=== PATIENT | female | born 2000 | race American Indian/Alaskan Native ===

== ENCOUNTER 2024-06-25 15:21 | Emergency (ER) | payer OTHER, SELFPAY ==
--- NOTE | ~2024-06-25 | US_ITS ---
EXAMINATION: US PELVIS CLINICAL INFORMATION: Suprapubic pain. COMPARISON: None available. LMP: 06/16/2024 TECHNIQUE: Ultrasound of the pelvis is performed using both transabdominal and transvaginal transducers along with Doppler. Transvaginal imaging is performed due to inadequate visualization transabdominally. FINDINGS: Uterus: The uterus is anteverted and anteflexed and measures 8.7 x 4.2 x 4.9 cm. The double wall endometrial thickness is 12 mm. Small volume of fluid in the cervix. The uterus is smooth in contour and has normal myometrial echogenicity. No visible fibroid. Adnexa: Both ovaries are visualized. There is normal color flow to the adnexa. There is no ovarian torsion. There is no pelvic ascites or fluid collection. Right ovary measures 2.5 x 1.1 x 2.2 cm. 3.2 mL., Follicle/cyst measuring 1.7 cm. There is an adjacent 1.4 cm cyst/follicle. Left ovary measures 3.9 x 1.8 x 3.1 cm. And 0.4 mL. Dominant follicle measuring 1.9 cm. US/US pelvic and transvaginal IMPRESSION: Normal ultrasound of pelvis. Electronically signed by: Bran Hameed MD 06/25/2024 04:56 PM EDT
[2024-06-25 15:45] VITALS: BP 118/80; PULSE 84; RESP 16; TEMP 37.1; O2SAT 99; BMI 29.3
--- NOTE | 2024-06-25 15:48 | ED_ITS ---
HPI - Abdominal Pain General Chief Complaint: Urogenital-Female Stated Complaint: pelvic and groin pain Time Seen by Provider: 06/25/24 20:18 Source: patient Limitations: no limitations History of Present Illness ED Provider: Veena Gutiérrez PA-C HPI narrative: 23-year-old otherwise healthy female presents with right lower pelvic pain x1 week. Pain radiates to right groin, is worse with movement. Denies dysuria, hematuria, history of kidney stones, risk for STD, new vaginal discharge, risk of or vaginal bleeding. No nausea, vomiting, diarrhea or fever. Patient denies that she could have strained her abdominal wall. Related Data Previous Rx's ?Medication ?Instructions ?Recorded doxycycline hyclate 100 mg capsule 100 mg PO BID #28 caps 06/25/24 metronidazole 500 mg tablet 500 mg PO BID #28 tabs 06/25/24 Allergies Allergy/AdvReac Type Severity Reaction Status Date / Time strawberry Allergy Anaphylaxis Verified 06/25/24 22:27 Review of Systems Review of Systems Yes all other systems are reviewed and are negative Constitutional: Denies fatigue and Denies fever(s) Cardiovascular: Denies chest pain Gastrointestinal: Reports abdominal pain Genitourinary: Denies abnormal vaginal bleeding, Denies dysuria and Denies vaginal discharge Endocrine: Denies fatigue PMFSH Past Medical History Attestation statement: The following information was validated with the patient. Social History Social History Advance Directives: No Advance Directives Information Provided: No Do you have a plan to hurt others: No Plan Physical Exam ED Vital Signs: Vital Signs - 24 hr 06/25/24 15:45 06/25/24 20:47 Temperature 98.8 F 98.2 F Pulse Rate 84 78 Respiratory Rate 16 16 Blood Pressure 118/80 115/63 Pulse Oximetry 99 99 Oxygen Delivery Method Room Air Room Air BMI result Body Mass Index 29.3 Const Other: Alert well in appearance Orientation/consciousness: patient oriented x3 Resp Effort & Inspection: normal respiratory effort GI Other: Abdomen is soft, nondistended, mild tenderness over right pelvic region without guarding Other: Normal external genitalia, no lesions, no bleeding and vaginal canal, cervix is pink, it is not friable, trace amounts of watery translucent discharge noted, no CMT Skin Other: Warm dry no rash Neuro General: patient oriented x3, no focal motor deficits and CN's II-XI intact bilaterally Psych Other: Cooperative, tearful at times Course Course Course Narrative: This is a Rapid Medical Exam performed in triage by Ebony Mcgarry PA-C. Full HPI, ROS and PE to be performed by primary ED provider. 23 yo F w/no sig pmhx presenting to the ED c/o subjective fever, right lower/suprapubic abdominal pain x1 week s/p ending menstruation. denies V/D/C, vaginal bleeding or d/c, dysuria, hematuria PE: abdomen soft +R suprapubic tenderness Plan: labs, UA, STI testing, Pelvic US Medical Decision Making Medical Decision Making [facility] Narrative: 23-year-old otherwise healthy female presents with right lower pelvic pain x1 week. Pain radiates to right groin, is worse with movement. Denies dysuria, hematuria, history of kidney stones, risk for STD, new vaginal discharge, risk of or vaginal bleeding. No nausea, vomiting, diarrhea or fever. Patient denies that she could have strained her abdominal wall. No relevant chronic issues History: Per patient I have considered the following differential diagnoses: Appendicitis, renal colic, UTI, torsion, ectopic, TOA, PID, cervicitis Plan: Patient is assessment began in [facility]. Screening labs including urine GC chlamydia, and transvaginal ultrasound were obtained. The patient does not , the ultrasound was unremarkable. However she tested positive for chlamydia. She is extremely upset as she is , and has not had any additional partners on her own. We will perform a pelvic exam, screen for trich, and treat for PID. Patient is in agreement with the plan. I have independently reviewed the following tests: Labs: No leukocytosis, not anemic, urine not infected, positive For chlamydia, wet prep pending at the time of discharge Transvaginal ultrasound:COMPARISON: None available. LMP: 06/16/2024 TECHNIQUE: Ultrasound of the pelvis is performed using both transabdominal and transvaginal transducers along with Doppler. Transvaginal imaging is performed due to inadequate visualization transabdominally. FINDINGS: Uterus: The uterus is anteverted and anteflexed and measures 8.7 x 4.2 x 4.9 cm. The double wall endometrial thickness is 12 mm. Small volume of fluid in the cervix. The uterus is smooth in contour and has normal myometrial echogenicity. No visible fibroid. Adnexa: Both ovaries are visualized. There is normal color flow to the adnexa. There is no ovarian torsion. There is no pelvic ascites or fluid collection. Right ovary measures 2.5 x 1.1 x 2.2 cm. 3.2 mL., Follicle/cyst measuring 1.7 cm. There is an adjacent 1.4 cm cyst/follicle. Left ovary measures 3.9 x 1.8 x 3.1 cm. And 0.4 mL. Dominant follicle measuring 1.9 cm. US/US pelvic and transvaginal IMPRESSION: Normal ultrasound of pelvis. Electronically signed by: Bran Hameed MD 06/25/2024 04:56 PM EDT RP Dictated By: Bran Hameed MD Discussed with the patient that the additional vaginal swab would not be completed at the time of her discharge, that she can access the patient portal, someone from registration was showing her how to do so. Lab Data 06/25/24 16:02 06/25/24 16:02 Labs: Lab Results 06/25/24 06/25/24 06/25/24 Range/Units 16:02 16:28 16:29 WBC 8.0 (4.8-10.8) X10*3/uL RBC 4.79 (4.20-5.50) X10*6/uL Hgb 9.2 L (12.0-16.0) g/dl Hct 32.0 L (37.0-47.0) % MCV 66.8 L (80.0-98.0) fL MCH 19.2 L (27.0-33.0) pg MCHC 28.8 L (31.0-35.0) g/dl RDW 18.8 H (11.0-16.0) % Plt Count 360 (160-400) X10*3/uL MPV 8.6 L (9.4-12.3) fL Immature Gran % (Auto) 0.2 (0.0-0.4) % Neut % (Auto) 60.4 (45-73) % Lymph % (Auto) 29.1 (20-40) % [place] % (Auto) 7.7 (2-11) % Eos % (Auto) 2.0 (0-4) % Baso % (Auto) 0.6 (0-2) % Lymph # (Auto) 2.3 (1.2-4.9) X10*3/uL [place] # (Auto) 0.6 (0.1-1.2) X10*3/uL Eos # (Auto) 0.2 (0.0-0.4) X10*3/uL Baso # (Auto) 0.1 (0.0-0.2) X10*3/uL Abs Immat Gran (auto) 0.02 (0.00-0.03) X10*3/uL Absolute Neuts (auto) 4.8 (2.0-8.3) x10*3/uL Absolute Nucleated RBC 0.000 (0.0-0.012) X10*3/uL Nucleated RBC % (auto) 0.0 (0.0-0.2) /100WBC Sodium 139 (135-145) mmol/L Potassium 3.9 (3.3-5.1) mmol/L Chloride 107 (96-108) mmol/L Carbon Dioxide 26 (22-29) mmol/L Anion Gap 10 L (12-20) BUN 7 L (9-16) mg/dL Creatinine 0.66 (0.5-1.4) mg/dL Estim Creat Clear Calc 121.5 Estimated GFR > 60 Random Glucose 93 (60-115) mg/dL Calcium 9.6 (8.4-10.2) mg/dL Total Bilirubin 0.4 (0.0-1.0) mg/dL Direct Bilirubin 0.1 (0.0-0.5) mg/dL AST 21 (5-31) U/L ALT 19 (0-31) U/L Alkaline Phosphatase 101 (39-117) U/L Total Protein 8.1 H (6.5-8.0) g/dL Albumin 4.4 (3.5-5.0) g/dL Lipase 44 (8-78) U/L Urine Color Yellow Urine Appearance Clear Urine pH 8.0 (5.0-9.0) Ur Specific Warren 1.015 (1.005-1.025) Urine Protein Negative (Neg-Trace) mg/dL Urine Glucose (UA) Negative (Negative) mg/dL Urine Ketones Negative (Negative) mg/dL Urine Blood Negative (Negative) Urine Nitrite Negative (Negative) Ur Leukocyte Esterase Negative (Negative) Urine Test NEGATIVE (NEGATIVE) Chlam trachomat DNA PCR DETECTED A (Not Detect.) N.gonorrhoeae DNA (PCR) NOT DETECTED (Not Detect.) T. vaginalis Amp RNA 06/25/24 Range/Units 21:52 WBC (4.8-10.8) X10*3/uL RBC (4.20-5.50) X10*6/uL Hgb (12.0-16.0) g/dl Hct (37.0-47.0) % MCV (80.0-98.0) fL MCH (27.0-33.0) pg MCHC (31.0-35.0) g/dl RDW (11.0-16.0) % Plt Count (160-400) X10*3/uL MPV (9.4-12.3) fL Immature Gran % (Auto) (0.0-0.4) % Neut % (Auto) (45-73) % Lymph % (Auto) (20-40) % [place] % (Auto) (2-11) % Eos % (Auto) (0-4) % Baso % (Auto) (0-2) % Lymph # (Auto) (1.2-4.9) X10*3/uL [place] # (Auto) (0.1-1.2) X10*3/uL Eos # (Auto) (0.0-0.4) X10*3/uL Baso # (Auto) (0.0-0.2) X10*3/uL Abs Immat Gran (auto) (0.00-0.03) X10*3/uL Absolute Neuts (auto) (2.0-8.3) x10*3/uL Absolute Nucleated RBC (0.0-0.012) X10*3/uL Nucleated RBC % (auto) (0.0-0.2) /100WBC Sodium (135-145) mmol/L Potassium (3.3-5.1) mmol/L Chloride (96-108) mmol/L Carbon Dioxide (22-29) mmol/L Anion Gap (12-20) BUN (9-16) mg/dL Creatinine (0.5-1.4) mg/dL Estim Creat Clear Calc Estimated GFR Random Glucose (60-115) mg/dL Calcium (8.4-10.2) mg/dL Total Bilirubin (0.0-1.0) mg/dL Direct Bilirubin (0.0-0.5) mg/dL AST (5-31) U/L ALT (0-31) U/L Alkaline Phosphatase (39-117) U/L Total Protein (6.5-8.0) g/dL Albumin (3.5-5.0) g/dL Lipase (8-78) U/L Urine Color Urine Appearance Urine pH (5.0-9.0) Ur Specific Warren (1.005-1.025) Urine Protein (Neg-Trace) mg/dL Urine Glucose (UA) (Negative) mg/dL Urine Ketones (Negative) mg/dL Urine Blood (Negative) Urine Nitrite (Negative) Ur Leukocyte Esterase (Negative) Urine Test (NEGATIVE) Chlam trachomat DNA PCR (Not Detect.) N.gonorrhoeae DNA (PCR) (Not Detect.) T. vaginalis Amp RNA Cancelled Discharge Plan Discharge Clinical Impression: Acute pelvic inflammatory disease (PID), Chlamydia Patient Disposition: Home, Self-Care Additional Instructions: You were found to test positive for chlamydia. This is a sexually transmitted disease, it can cause symptoms of pelvic inflammatory disease. We are treating you for this infection. Take the doxycycline as directed. There was 1 vaginal swab that we will not result overnight, you can access the patient portal for results. If you test positive for trichomatis, you should take the prescribed Flagyl as directed as well. If you are negative for a coinfection, discard the prescription. Prescriptions: New doxycycline hyclate 100 mg capsule 100 mg PO BID Qty: 28 0RF metronidazole 500 mg tablet 500 mg PO BID Qty: 28 0RF Print Language: Welsh
[2024-06-25 16:07] LABS: MANUAL DIFF FLAG NO
[2024-06-25 16:09] LABS: Basophils Absolute Auto 0.1 X10*3/uL (0.0-0.2); Basophils Percent Auto 0.6 % (0-2); Eosinophils Absolute Auto 0.2 X10*3/uL (0.0-0.4); Hemoglobin 9.2 g/dl (12.0-16.0); Imm Gran Abs Auto 0.02 X10*3/uL (0.00-0.03); Imm Gran Pct Auto 0.2 % (0.0-0.4); Lymphocytes Absolute Auto 2.3 X10*3/uL (1.2-4.9); Lymphocytes Percent Auto 29.1 % (20-40); Mean Corpuscular HGB Conc 28.8 g/dl (31.0-35.0); Mean Corpuscular Hemoglobin 19.2 pg (27.0-33.0); Mean Corpuscular Volume 66.8 fL (80.0-98.0); Mean Platelet Volume 8.6 fL (9.4-12.3); Monocytes Absolute Auto 0.6 X10*3/uL (0.1-1.2); Monocytes Percent Auto 7.7 % (2-11); Neutrophils Absolute Auto 4.8 x10*3/uL (2.0-8.3); Neutrophils Percent Auto 60.4 % (45-73); Platelet Count 360 X10*3/uL (160-400); Red Blood Count 4.79 X10*6/uL (4.20-5.50); Red Cell Distribution Width 18.8 % (11.0-16.0)
[2024-06-25 16:35] LABS: Alanine Aminotransferase 19 U/L (0-31); Albumin Level 4.4 g/dL (3.5-5.0); Alkaline Phosphatase 101 U/L (39-117); Anion Gap 10 (12-20); Aspartate Amino Transferase 21 U/L (5-31); Bilirubin Direct 0.1 mg/dL (0.0-0.5); Bilirubin Total 0.4 mg/dL (0.0-1.0); Blood Urea Nitrogen 7 mg/dL (9-16); Calcium 9.6 mg/dL (8.4-10.2); Carbon Dioxide 26 mmol/L (22-29); Chloride 107 mmol/L (96-108); Creatinine Clr Calc Pharmacy 121.5; Estimated Glomerular Filt Rate > 60; Glucose Random 93 mg/dL (60-115); Lipase 44 U/L (8-78); Potassium 3.9 mmol/L (3.3-5.1); Sodium 139 mmol/L (135-145); Total Protein 8.1 g/dL (6.5-8.0)
[2024-06-25 16:41] LABS: Appearance Urine Clear; Color Urine Yellow; Glucose Urine UA Negative (Negative); Leukocyte Esterase Urine Negative (Negative); Nitrite Urine Negative (Negative); Specific Gravity - Urine 1.015 (1.005-1.025); Urine Blood Negative (Negative); Urine Ketones Negative (Negative); Urine Protein Negative (Neg-Trace)
[2024-06-25 16:43] LABS: UPreg QC Valid YES; Urine Pregnancy NEGATIVE (NEGATIVE)
[2024-06-25 18:47] LABS: CT PCR DETECTED (Not Detect.); NG PCR NOT DETECTED (Not Detect.)
[2024-06-25 20:47] VITALS: BP 115/63; PULSE 78; RESP 16; TEMP 36.8; O2SAT 99
[2024-06-25] MEDS: Doxycycline Monohydrate 100 MG CAPSULE PO (22:28)
[2024-06-25] MEDS: cefTRIAXone sodium 250 MG VIAL IM (22:28)
[2024-06-25 23:44] VITALS: BP 121/67; PULSE 77; RESP 18; TEMP 36.8; O2SAT 100
[2024-06-26 10:50] LABS: Bacterial Vaginosis PCR POSITIVE (Negative); Candida Group PCR NOT DETECTED (Not Detect); Candida glab krusei PCR NOT DETECTED (Not Detect); Trichomonas vaginalis PCR NOT DETECTED (Not Detect)
== END 2024-06-25 23:12 | disposition home or self-care (01) ==
PROVIDERS: Physician Assistant; Physician Assistant Medical; Emergency Provider Emergency Medicine
DX: A56.11 Chlamydial female pelvic inflammatory disease (principal); R10.2 Pelvic and perineal pain
CPT/HCPCS: 0352U; 36415; 76830; 76856; 80048; 80076; 81003; 81025; 83690; 85025; 87491; 87591; 87661; 96372; 99284; J0696

== ENCOUNTER 2024-11-12 07:58 | Outpatient (REF) | payer OTHER, SELFPAY | END 2024-11-12 07:59 | disposition home or self-care (01) | LOC: HO.LAB 07:58 | PROVIDERS: Visit Provider Physician Assistant | DX: J06.9 Acute upper respiratory infection, unspecified (principal) | CPT/HCPCS: 99202 ==

== ENCOUNTER 2024-11-12 07:58 | Outpatient (AMB) | payer OTHER, SELFPAY ==
[2024-11-12 08:49] VITALS: BP 122/70; PULSE 109; RESP 20; TEMP 37.9; O2SAT 96; BMI 29.3
--- NOTE | 2024-11-12 08:49 | AM.OFFWIN_ITS ---
Intake Vital Signs 11/12/24 08:49 Height 5 ft 2 in Weight 160 lb BMI 29.3 BP 122/70 Blood Pressure Location Lt brachial Position Sitting Respiration 20 Pulse 109 H Pulse Source Pulse Oximeter Temp 100.3 F Temp Source Oral Pulse Oximetry (%) 96 Oxygen Delivery Method Room Air Intake Visit Reasons: EP fever, cough, sore throat chest discomfort Intake Note: Pt is here today for a walk in visit. Pt c/o fever cough chest congestion since Sunday. Allergies strawberry Allergy (Verified 11/12/24 08:52) Anaphylaxis Do you need a note to return to daycare/school/sports/work: Yes HPI HPI Comments History of Present Illness Details History - The patient is a 24-year-old female pr esenting with chest pain and fever. - Chest pain is described as a heaviness on the top of the lungs, worsening with deep inspiration but without radiation to back, neck, arms or shoulders. - She has a past medical history of asth ma and is currently without prescribed inhalers. - The febrile illness commenced two days ago, accompanied by persistent fever unresponsive to cultural traditional treatments of teas. Is able to take tylenol. - At-home COVID testing returned negativ e results. - She self-manages respiratory symptoms with teas but has not attempted pharmacological fever management. Physical Exam General: Cooperative, healthy appearing, comfortable and no acute distress Orientation/consciousness: Patient oriented x3 Limitations: No limitations Head: Normal to inspection Ears: Hearing grossly normal bilaterally, external ears normal and TM's normal bilaterally Nose: Normal external nose present, Normal nares present and No nasal discharge present Face and sinus: Normal facial exam and Yes sinuses nontender Mouth: Normal oral and palatal mucosa present and moist mucous membranes Throat: Yes tonsils normal, Yes uvula midline. Posterior oropharynx erythema Eyes: Appearance normal, both eyes and all related structures Neck: Normal visual inspection Respiratory: Clear to auscultation bilaterally. Normal respiratory effort, able to speak in complete sentences, Actively coughing, no respiratory distress, not tachypneic, no tripod positioning and no use of accessory muscles Cardiovascular: Regular rate and rhythm. Normal S1 and S2 Skin: No rashes or lesions noted Neuro: Patient oriented x3 Extremities: Normal to inspection and Yes no clubbing, cyanosis or edema Review of Systems Const All systems reviewed & are unremarkable except as noted in HPI and below Physical Exam Vital Signs: Last Vital Signs Temp 100.3 F 11/12/24 08:49 Pulse 109 H 11/12/24 08:49 Resp 20 11/12/24 08:49 BP 122/70 11/12/24 08:49 Pulse Ox 96 11/12/24 08:49 Oxygen Delivery Method Room Air 11/12/24 08:49 BMI result Body Mass Index 29.3 Assessment & Plan Assessment & Plan (1) Viral upper respiratory infection: Code(s): J06.9 - Acute upper respiratory infection, unspecified Plan: The clinical plan includes testing for potential viral pathogens?namely influenza, COVID-19, and RSV?due to the combination of chest pain and fever. No antiviral therapy like Tamiflu is recommended at this time due to its possible side effects without significant benefit, pending test results. A chest x-ray is decreed to investigate any pulmonary involvement that may need attention. An albuterol inhaler will be furnished for symptomatic relief regarding the patient's asthma. Acetaminophen is advised for fever control. The patient is encouraged to remain hydrated and refrain from work to aid recovery. Medical leave documentation was supplied as per patient's work schedule needs. Patient was informed and verbally consented to the use of an ambient scribe for clinic note documentation during this visit Orders: Orders XR chest 2V Today R05.9 - Cough, unspecified SARS-CoV2/FLU/RSV Today R09.89 - Other specified symptoms and signs involving the circulatory and respiratory systems Medications: New albuterol sulfate 90 mcg/actuation 2 puffs inhalation Q6H PRN 8.5 grams 0RF shortness of breath or wheezing or cough Discontinued metronidazole Discontinued Reason: Patient Completed Course 500 mg PO BID 28 tabs 0RF doxycycline hyclate Discontinued Reason: Patient Completed Course 100 mg PO BID 28 caps 0RF Coding Level of Care Code New Pt Level 4 (36232) Diagnoses Viral upper respiratory infection J06.9
== END 2024-11-12 09:13 | disposition home or self-care (01) ==
PROVIDERS: Visit Provider Physician Assistant
DX: J06.9 Acute upper respiratory infection, unspecified (principal)

== ENCOUNTER 2024-11-12 09:03 | Outpatient (REF) | payer OTHER, SELFPAY ==
--- NOTE | ~2024-11-12 | XR_ITS ---
EXAMINATION: XR CHEST CLINICAL INFORMATION: R05.9 - Cough, unspecified COMPARISON: None available. TECHNIQUE: 2 views of the chest were obtained. FINDINGS: No consolidation, pleural effusion or pneumothorax. Cardiomediastinal silhouette size is normal. Osseous structures are intact. Mild S-shaped curvature of the mid thoracic spine which could be positional. XR/XR chest 2V IMPRESSION: No acute airspace disease. Acute small airway inflammatory disease cannot be excluded. Electronically signed by: Manuelito King MD 11/12/2024 09:27 AM [facility]
[2024-11-12 12:37] LABS: Influenza A PCR POSITIVE (Negative); Influenza B PCR NEGATIVE (Negative); Resp Syncy Virus RNA Qual PCR NEGATIVE (Negative); SARS COV2 PCR INHOUSE NEGATIVE (Negative)
== END 2024-11-12 09:04 | disposition home or self-care (01) ==
LOC: HO.HMGCX 09:03
PROVIDERS: Visit Provider Physician Assistant
DX: R09.89 Other specified symptoms and signs involving the circulatory and respiratory systems (principal); R05.8 Other specified cough
CPT/HCPCS: 0241U; 71046

== ENCOUNTER → 2024-11-12 09:08 | Outpatient (BNV) | payer OTHER, SELFPAY | PROVIDERS: Visit Provider Radiology Diagnostic Radiology | DX: R05.9 Cough, unspecified (principal) | CPT/HCPCS: 71046 ==

== ENCOUNTER 2025-03-16 15:43 | Outpatient (AMB) | payer OTHER, SELFPAY ==
--- NOTE | 2025-03-16 15:43 | AM.OFFWIN_ITS ---
Intake Vital Signs 03/16/25 15:44 Height 5 ft 2 in Weight 167 lb 4 oz BMI 30.6 BP 124/80 Blood Pressure Location Rt brachial Position Sitting Pulse 103 H Pulse Source Pulse Oximeter Temp 98.0 F Temp Source Oral Pulse Oximetry (%) 97 Oxygen Delivery Method Room Air Intake Visit Reasons: EP LT hand pain Intake Note: Pt presents to the office today for c/o left hand pain x2 weeks. 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 Pt states she is experiencing numbness and pain in the palm, thumb, pointer and middle finger. Patient Tobacco Use Status: Never used Tobacco Allergies strawberry Allergy (Verified 03/16/25 15:47) Anaphylaxis HPI HPI Comments History of Present Illness Details History - The patient is a 24-year-old female pr esenting with wrist pain and cramping. - Symptoms began about a week ago, with cramping and weakness in the hand, worsened by her job as a banquet prep cook. - She reported a new symptom of pain dur ing a work incident where she dropped a chafer due to cramping. - Denies weakness - There is a past history of wrist pain in the right hand, but current symptoms are in the left hand/wrist. Physical Exam Physical Exam General: Cooperative, healthy appearing, comfortable, no acute distress and well developed Orientation: Patient oriented x3 Limitations: No limitations Head: Normal to inspection Ears: Hearing grossly normal bilaterally Nose: Normal External nose present Face and sinus: Normal facial exam Mouth: normal, moist oral mucosa Eyes: Appearance normal, both eyes and all related structures Neck: Normal visual inspection and Yes full ROM Respiratory: Normal respiratory effort and able to speak in complete sentences. Skin: no rashes or lesions noted Neuro: Patient oriented x3 Extremities: moving all extremities normally; right wrist + phalens, - Tinels, full ROM right wrist, full ROM all fingers and NVI, 4/5 strength right hand, 5/5 strength left hand iwth full ROM of fingers and wrist. PFSH Social History Patient Tobacco Use Status: Never used Tobacco Review of Systems Const All systems reviewed & are unremarkable except as noted in HPI and below Physical Exam Vital Signs: Last Vital Signs Temp 98.0 F 03/16/25 15:44 Pulse 103 H 03/16/25 15:44 BP 124/80 03/16/25 15:44 Pulse Ox 97 03/16/25 15:44 Oxygen Delivery Method Room Air 03/16/25 15:44 BMI result Body Mass Index 30.6 Assessment & Plan Assessment & Plan (1) Carpal tunnel syndrome, left upper limb: Code(s): G56.02 - Carpal tunnel syndrome, left upper limb Plan: 1. Carpal Tunnel Syndrome - Recommend wearing a wrist brace at night to stabilize and rest the wrist. - Advise use of naproxen or ibuprofen for pain management. - Suggest rest from work duties that exacerbate symptoms, with a note provided for time off. - Gave pt phone number for PCP to establish care with a primary care physician for potential referral to orthopedics if symptoms persist. Coding Level of Care Code New Pt Level 3 (98584) Diagnoses Carpal tunnel syndrome, left upper limb G56.02
[2025-03-16 15:44] VITALS: BP 124/80; PULSE 103; TEMP 36.7; O2SAT 97; BMI 30.6
== END 2025-03-16 16:11 | disposition home or self-care (01) ==
PROVIDERS: Visit Provider Physician Assistant
DX: G56.02 Carpal tunnel syndrome, left upper limb (principal)

== ENCOUNTER → 2025-03-16 15:43 | Outpatient (BNVA) | payer OTHER, SELFPAY | PROVIDERS: Visit Provider Physician Assistant | DX: G56.02 Carpal tunnel syndrome, left upper limb (principal) | CPT/HCPCS: 99212 ==